=== PATIENT | female | born 1985 | race Caucasian/White ===

== ENCOUNTER 2018-03-24 22:14 | Emergency (ER) | payer OTHER ==
[2018-03-24 22:31] VITALS: BP 108/74; PULSE 87; RESP 20; TEMP 99; O2SAT 97
--- NOTE | 2018-03-24 23:23 | C.PDOC ---
History Of Present Illness 33 year old female tripped and fell down 4 steps and twisted her right ankle, now complaining of right ankle pain. She has been elevating the ankle and applying ice but reports persistent pain and unable to bear weight which prompted visit. Denies weakness or numbness. Time Seen by Provider: 03/24/18 22:20 Chief Complaint (Nursing): Lower Extremity Problem/Injury History Per: Patient History/Exam Limitations: no limitations Onset/Duration Of Symptoms: Hrs Current Symptoms Are (Timing): Still Present Recent travel outside of the [place]: No - Ankle/Foot Description Of Injury: Twisted Currently Unable To: Bear Weight Past Medical History Reviewed: Historical Data, Nursing Documentation, Vital Signs Vital Signs: Last Vital Signs Temp 99.0 F 03/24/18 22:20 Pulse 87 03/24/18 22:20 Resp 20 03/24/18 22:20 BP 108/74 03/24/18 22:20 Pulse Ox 97 03/24/18 22:20 Family History: States: Unknown Family Hx - Social History Hx Alcohol Use: No Hx Substance Use: No Review Of Systems Musculoskeletal: Positive for: Other (Right ankle pain) Neurological: Negative for: Weakness, Numbness Physical Exam - Physical Exam Appears: Non-toxic Skin: Warm, Dry Head: Atraumatic, Normacephalic Eye(s): bilateral: Normal Inspection Extremity: Capillary Refill (<2 seconds), No Deformity, Other (Swelling and tenderness to bilateral right malleoli with mild erythema to right lateral malleolus. No foot tenderness or ecchymosis. ROM of right ankle limited seconda ry to pain, unable to bear weight, right foot normal nontender) Pulses: Left Dorsalis Pedis: Normal, Right Dorsalis Pedis: Normal Neurological/Psych: Oriented x3, Normal Speech, Normal Motor, Normal Sensation Gait: Unable To Assess ED Course And Treatment O2 Sat by Pulse Oximetry: 97 (Room air) Pulse Ox Interpretation: Normal - Other Rad Right ankle x-ray X-Ray: Interpreted by Me, Viewed By Me Interpretation: Questionable tallus fracture vs bone spur. Progress Note: Motrin administered for pain. Right ankle x-ray ordered, results showed questionable fracture of talus vs bone spur, discussed results with patient, recommended CT to rule out talus fracture, however, patient with no pain to that area at this time, states she prefers to have splint placed, crutches, and will follow up with podiatry. Pt placed in posterior leg splint by CP and checked by me and was instructed in crutch walk. Return and follow up instructions wre discussed and understood by pt Disposition Counseled Patient/Family Regarding: Diagnosis, Need For Followup, Rx Given - Disposition Referrals: [facility] [Outside] Podiatry Clinic [Outside] Disposition: HOME/ ROUTINE Disposition Time: 23:21 Condition: STABLE Additional Instructions: Please follow up with Design Teacher Take motrin as directed Elevate leg/ Apply ICE to area Return to ER if worse Prescriptions: Ibuprofen [Motrin] 600 mg PO Q6H #30 tab Instructions: Ankle Sprain (DC) Forms: [employer] (Estonian) - Clinical Impression Clinical Impression: Right ankle sprain, Talus fracture - PA / [employer] / Resident Statement MD/DO has reviewed & agrees with the documentation as recorded. - Scribe Statement The provider has reviewed the documentation as recorded by the Scribe Otis Villatoro All medical record entries made by the Scribe were at my direction and personally dictated by me. I have reviewed the chart and agree that the record accurately reflects my personal performance of the history, physical exam, medical decision making, and the department course for this patient. I have also personally directed, reviewed, and agree with the discharge instructions and disposition.
--- NOTE | 2018-03-25 08:15 | RAD ---
Date of service: 03/24/2018 PROCEDURE: Right Ankle Radiographs. HISTORY: pain, swelling b/l malleoli COMPARISON: None available. FINDINGS: BONES: A tiny talar neck spur and probable nutrient foramen beneath it is present. A talar fracture here is believed unlikely. No dislocation noted. JOINTS: No significant appearing osteoarthrosis. Ankle mortise maintained. Talar dome intact SOFT TISSUES: Diffuse subcutaneous reticulated edema lower leg and ankle hindfoot level OTHER FINDINGS: None. IMPRESSION: Dorsal tiny talar neck spur favored. No acute fracture believed present. Extensive and diffuse soft tissue swelling.
== END 2018-03-25 00:12 | disposition home or self-care (01) ==
LOC: C.ER 22:14
DX: S92.101A Unspecified fracture of right talus, initial encounter for closed fracture (principal); S93.401A Sprain of unspecified ligament of right ankle, initial encounter; X50.9XXA Other and unspecified overexertion or strenuous movements or postures, initial encounter